=== PATIENT | female | born 1975 | race Two or more races ===

== ENCOUNTER 2020-03-21 06:00 | Day surgery (SDC) | payer OTHER ==
[~2020-03-21 06:00] MED LIST: ATORVASTATIN CA20 MG PO; FENO PO; SINGULAIR10 MG PO; [UNRECOGNIZED DRUG - OTHER] PO
== END 2020-03-21 17:25 | disposition home or self-care (01) ==
LOC: CIR.AMB 06:00
PROVIDERS: ATTEND Obstetrics & Gynecology
DX: N75.1 Abscess of Bartholin's gland (principal); Z20.828 Contact with and (suspected) exposure to other viral communicable diseases